=== PATIENT | male | born 1980 | race Caucasian/White ===

== ENCOUNTER 2018-05-08 20:00 | Emergency (ER) | payer OTHER ==
[2018-05-08 20:08] VITALS: BP 131/73
--- NOTE | 2018-05-08 20:20 | UC ---
Lower Extremity/Ankle HPI - HPI Summary HPI Summary: This is scrlemuele Nicole Kowng documenting for attending Michael Coker MD. This patient is a 37 year old M presenting to [facility] with a chief complaint of R dorsal foot pain status post fall that occurred at 1910. Pt reports he was riding his skateboard down a small hill, rolled his ankle, and fell off. He denies hitting his head and LOC; he was wearing a helmet. The patient rates the pain 8/10 in severity. Symptoms aggravated by standing. Symptoms alleviated by nothing. He is unable to bear weight. - History of Current Complaint Chief Complaint: UCLowerExtremity Stated Complaint: L FOOT INJURY Time Seen by Provider: 05/08/18 20:14 Hx Obtained From: Patient Onset/Duration: Sudden Onset, Lasting Hours, Still Present Severity Initially: Severe Severity Currently: Severe Pain Intensity: 8 Pain Scale Used: 0-10 Numeric Aggravating Factor(s): Standing Alleviating Factor(s): Nothing Able to Bear Weight: No - Allergies/Home Medications Allergies/Adverse Reactions: Allergies Allergy/AdvReac Type Severity Reaction Status Date / Time No Known Allergies Allergy Verified 05/08/18 20:09 Home Medications: Home Medications Ibuprofen TAB* [Motrin TAB* 600 MG] 600 mg PO ONCE 05/08/18 [History Confirmed 05/08/18] PMH/Surg Hx/FS Hx/Imm Hx Previously Healthy: Yes Endocrine History: Other Other Endocrine History: Negative diabetes Cardiovascular History: Other Other Cardiovascular History: Negative HTN - Surgical History Surgical History: None - Family History Known Family History: Positive: Unknown - Social History Occupation: Employed Full-time Lives: With Family Alcohol Use: Occasionally Substance Use Type: None Smoking Status (MU): Never Smoked Tobacco Review of Systems Constitutional: Other - Negative fever Musculoskeletal: Other: - Positive R dorsal foot pain All Other Systems Reviewed And Are Negative: Yes Physical Exam - Summary Physical Exam Summary: VITAL SIGNS: Reviewed. GENERAL: Patient is a well-developed and nourished male who is lying comfortable in the stretcher. Patient is not in any acute respiratory distress. HEAD AND FACE: Normocephalic EYES: PERRLA, EOMI x 2. EARS: Hearing grossly intact. MOUTH: Oropharynx within normal limits. NECK: Supple, trachea is midline, no adenopathy, no JVD, no carotid bruit. CHEST: Symmetric, no tenderness at palpation LUNGS: Clear to auscultation bilaterally. No wheezing or crackles. CVS: Regular rate and rhythm, S1 and S2 present, no murmurs or gallops appreciated. ABDOMEN: Soft, non-tender. Bowel sounds are normal. No abdominal abnormal pulsations. EXTREMITIES: Full ROM in all major joints, no cyanosis or clubbing. Tenderness along the dorsal aspect, small bump which is very tender. Good capillary refill. Good pulses. NEURO: Alert and oriented x 3. No acute neurological deficits. Speech is normal and follows commands. SKIN: Dry and warm Triage Information Reviewed: Yes Vital Signs: Initial Vital Signs Temp 99.6 F 05/08/18 20:05 Pulse 80 05/08/18 20:05 Resp 18 05/08/18 20:05 BP 131/73 05/08/18 20:05 Pulse Ox 97 05/08/18 20:05 Vital Signs Reviewed: Yes Procedures - Splinting Right foot Hand-Made Type: fiberglass Splint: posterior walking Pre-Proc Neuro Vasc Exam: normal Post-Proc Neuro Vasc Exam: normal Diagnostics - Radiology Foot XR Radiology Interpretation Completed By: ED Physician - Foot XR reveals, per ED physician, base of 5th metatarsal fracture. Ankle XR Radiology Interpretation Completed By: ED Physician - R ankle XR reveals, per ED physician, no fracture or dislocation. Lower Extremity Course/Dx - Course Course Of Treatment: Patient with Metatarsal fracture. He was placed in a posterior splint and given crutches. He is non-weight bearing. He will f/u with orthopedics. Elevate and apply ice. - Differential Dx/Diagnosis Provider Diagnoses: Foot fracture Discharge - Sign-Out/Discharge Documenting (check all that apply): Patient Departure - Discharge Plan Condition: Stable Disposition: HOME Patient Education Materials: Foot Fracture in Adults (ED) Referrals: Noemi Zimmerman MD [Medical Doctor] - 3 Days Additional Instructions: Take Acetaminophen or ibuprofen for pain or fever Increase your fluid intake Return to the or go to the emergency department if symptoms worsen Follow-up with primary care physician in next 2-3 days - Billing Disposition and Condition Condition: STABLE Disposition: Home
--- NOTE | 2018-05-09 07:58 | RAD ---
INDICATION: Right lateral ankle and fifth metatarsal pain after a skateboarding injury COMPARISON: None. TECHNIQUE: 3 views of the right ankle and 3 views of the right foot were obtained. FINDINGS: There is a horizontally oriented lucent line at the base of the fifth metatarsal. Remaining visualized bones of the right foot and ankle are intact and appropriately aligned. IMPRESSION: NONDISPLACED FRACTURE AT THE BASE OF THE FIFTH METATARSAL. R1
== END 2018-05-08 21:15 | disposition home or self-care (01) ==
LOC: UCEAST 20:00
DX: S92.351A Displaced fracture of fifth metatarsal bone, right foot, initial encounter for closed fracture (principal); W19.XXXA Unspecified fall, initial encounter; Y93.51 Activity, roller skating (inline) and skateboarding; Y92.828 Other wilderness area as the place of occurrence of the external cause
CPT/HCPCS: 99202; G0463